=== PATIENT | female | born 1975 | race American Indian/Alaskan Native ===

== ENCOUNTER 2016-12-12 10:17 | Outpatient (CLI) | payer MEDICAID ==
--- NOTE | 2016-12-12 12:45 | Mammography Report ---
SPOT COMPRESSION MAGNIFICATION VIEW AND SONOGRAPHIC EXAMINATION OF CIRCUMSCRIBED 4 MM DENSITY LEFT UPPER LOBE: FINDINGS: There is persistence of density noted on Spot compression magnification view at upper left breast. On sonographic examination, there is well-defined circumscribed hypoechoic oval mass measuring 0.3 cm in transverse diameter noted corresponding to the density seen on the mammogram at approximate 2:00 position, 2 cm from nipple. IMPRESSION: Probably benign complex cyst or fibroadenoma. 6 month follow-up with mammogram and if necessary sonogram is recommended. BI-RADS CATEGORY: 0 = Needs additional imaging evaluation ACR BI-RADS MAMMOGRAPHIC CODES: 0 = Needs additional imaging evaluation; 1 = Negative; 2 = Benign; 3 = Probably benign; 4 = Suspicious; 5 = Malignant; 6 = Known biopsy-proven malignancy COMMENT: 1. Dense breast tissue, i.e., adenosis, fibrocystic changes, etc., may obscure an underlying neoplasm. 2. Approximately 10% of cancers are not detected with mammography. 3. A negative mammography report should not delay biopsy if a clinically suspicious mass is present.
== END 2016-12-12 10:18 | disposition home or self-care (01) ==
LOC: US 10:17
PROVIDERS: ATTEND Obstetrics & Gynecology
DX: N64.59 Other signs and symptoms in breast (principal)
CPT/HCPCS: 76642; G0206

== ENCOUNTER 2017-07-26 09:33 | Outpatient (CLI) | payer MEDICAID ==
--- NOTE | 2017-07-26 12:42 | Ultrasound Report ---
Bilateral diagnostic mammogram with CAD and targeted left breast ultrasound. History: 6 month followup study. Findings: Comparison is made to previous studies performed in November of 2016. The breast parenchyma is heterogeneously dense. In the upper quadrant of the left breast, there is a rounded nodular asymmetry partially secured by adjacent parenchyma which has been demonstrated on multiple previous studies. This has not changed appreciably in size or configuration. No architectural distortion or suspicious calcifications. Sonographic evaluation of the upper-outer quadrant of the left breast demonstrates a 4 mm circumscribed complex lesion which has an area of increased central echogenicity consistent with fat. This appearance and size are unchanged compared to the previous study in November. No additional focal findings are seen. Impression: Stable left breast nodular asymmetry which on ultrasound consistent with a small intramammary lymph node. No suspicious imaging features. BI-RADS code: 2. Recommendation: Annual screening.
== END 2017-07-26 09:34 | disposition home or self-care (01) ==
LOC: MAMMO 09:33
PROVIDERS: ATTEND Advanced Practice Midwife
DX: N64.59 Other signs and symptoms in breast (principal); N64.89 Other specified disorders of breast
CPT/HCPCS: 76642; G0204; 77066

== ENCOUNTER 2018-04-03 13:52 | Emergency (ER) | payer MEDICAID ==
[2018-04-03 14:27] VITALS: BP 140/70
[2018-04-03] MEDS ORDERED: DELTASONE PO ONE (16:00)
[2018-04-03] MEDS ORDERED: BENADRYL PO ONE (16:00)
--- NOTE | 2018-04-03 16:06 | Emergency Department Report ---
ED Rash HPI - HPI Chief Complaint: Skin/Abscess/Foreign Body Stated Complaint: BUG BITE ON BACK Time Seen by Provider: 04/03/18 15:44 Duration: 1 Day Location: Back Suspected Cause: Insect Rash Symptoms: Yes Itching, No Facial Swelling, No Tongue/Oral Swelling, No Breathing Difficulties, No Choking Sensation, No Wheezing/Dyspnea, No Peeling, No Blistering, No Fever, No Lightheaded, No Malaise, No Myalgias Severity: mild Other History: 42-year-old female presents with raised lesion on her right side of her back. Patient states she noticed it last night. Patient states today to pick. Patient states she thinks she got bit by a bug but did not see what bit her. She denies fevers/chills/nausea or vomiting. ED Review of Systems ROS: Stated complaint: BUG BITE ON BACK Other details as noted in HPI Constitutional: denies: chills, fever Eyes: denies: eye pain, eye discharge, vision change ENT: denies: ear pain, throat pain Respiratory: denies: cough, shortness of breath, wheezing Cardiovascular: denies: chest pain, palpitations Endocrine: no symptoms reported Gastrointestinal: denies: abdominal pain, nausea, diarrhea Genitourinary: denies: urgency, dysuria, discharge Musculoskeletal: denies: back pain, joint swelling, arthralgia Skin: denies: rash, lesions Neurological: denies: headache, weakness, paresthesias Psychiatric: denies: anxiety, depression Hematological/Lymphatic: denies: easy bleeding, easy bruising ED Past Medical Hx - Past Medical History Previous Medical History?: Yes Hx Hypertension: Yes Hx Psychiatric Treatment: Yes (ANXIETY. DO NOT TAKE HER PAXIL) Additional medical history: PNEUMONIA, UTERINE FIBROIDS - Surgical History Past Surgical History?: No - Social History Smoking Status: Smoker, Current Status Unknown Substance Use Type: Alcohol, Marijuana - Medications Home Medications: Home Medications Medication Instructions Recorded Confirmed Last Taken Type Cephalexin [Keflex] 500 mg PO Q12HR #10 cap 04/03/18 Unknown Rx Hydrocortisone 1 applic TP TID #1 tube 04/03/18 Unknown Rx diphenhydrAMINE [Benadryl CAP] 25 mg PO QHS #20 capsule 04/03/18 Unknown Rx Rash Exam - Exam General: Vital signs noted. No distress. Alert and acting appropriately. HEENT: No Periorbital Edema, No Conjuctival Injection, No Chemosis, No Perioral Edema, No Tongue Edema, No Uvular Edema, No Compromised Airway, No Drooling Lungs: Yes Good Air Exchange (Normal Breath Sounds), No Wheezes, No Ronchi, No Stridor, No Cough, No Labored Respirations, No Retractions, No Use of Accessory Muscles, No Other Abnormal Lung Sounds Heart: Yes Regular, No Murmur Front/Back of Body, Lg (Color): 1 - one raised lesion consistent with insect bite, nonerythematous, nontender to palpation. No draining Skin: Yes Other (raised lesion about 1cm with insect bite marking consistent with insect bite), No Urticarial Rash, No Maculopapular Rash, No Morbilliform rash, No Bulla(e), No Excoriations, No Weeping, No Tenderness, No Erythema, No Edema, No Encrustations Other: Positive: Abdomen Normal, Neurologic Normal, Musculoskeletal Normal ED Course Vital Signs 04/03/18 14:22 Temperature 98.2 F Pulse Rate 54 L Respiratory 18 Rate Blood Pressure 140/70 O2 Sat by Pulse 100 Oximetry ED Medical Decision Making - Medical Decision Making 42-year-old female presents with insect bites to right side of her lower back. ED course: I discussed the patient to apply antibiotic and cortisone cream to the lesion I discussed warm compresses to help with swelling. Patient is in no acute distress or respiratory distress. Vital signs are normal Critical care attestation.: If time is entered above; I have spent that time in minutes in the direct care of this critically ill patient, excluding procedure time. ED Disposition Clinical Impression: Insect bite Qualifiers: Encounter type: initial encounter Qualified Code(s): W57.XXXA - Bitten or stung by nonvenomous insect and other nonvenomous arthropods, initial encounter Disposition: DC-01 TO HOME OR SELFCARE Is pt being admited?: No Does the pt Need Aspirin: No Condition: Stable Instructions: Insect Bite or Sting (ED) Additional Instructions: Make sure to follow up with the primary care physician as discussed. Apply warm compress 3 times daily. Use cream as prescribed. Take all your medications as you've been prescribed. If you have any worsening symptoms or develop new symptoms please return to ED immediately. Prescriptions: diphenhydrAMINE [Benadryl CAP] 25 mg PO QHS #20 capsule Cephalexin [Keflex] 500 mg PO Q12HR #10 cap Hydrocortisone 1 applic TP TID #1 tube Referrals: PENNY DIAMOND MD [Primary Care Provider] - 3-5 Days Forms: Accompanied Note, Work/School Release Form(ED) Time of Disposition: 16:11
== END 2018-04-03 16:37 | disposition home or self-care (01) ==
LOC: ED 13:52
DX: S20.469A Insect bite (nonvenomous) of unspecified back wall of thorax, initial encounter (principal); W57.XXXA Bitten or stung by nonvenomous insect and other nonvenomous arthropods, initial encounter; Y93.89 Activity, other specified; Y92.89 Other specified places as the place of occurrence of the external cause; Y99.8 Other external cause status
CPT/HCPCS: 99282; J7512

== ENCOUNTER 2020-05-18 08:42 | Outpatient (CLI) | payer MEDICAID ==
--- NOTE | 2020-05-18 15:23 | Mammography Report ---
DIGITAL SCREENING MAMMOGRAM WITH CAD, 05/18/2020 INDICATION: Routine screening mammography. TECHNIQUE: Digital bilateral 2D mammography was obtained in the craniocaudal and mediolateral obliq ue projections. This examination was interpreted with the benefit of Computer-Aided Detection analysi s. COMPARISON: 05/03/2016. FINDINGS: Breast Density: The breasts are extremely dense, which lowers the sensitivity of mammography. There is no evidence of dominant mass, suspicious calcifications or architectural distortion in eithe r breast. IMPRESSION: Follow up recommendation: Routine yearly BI-RADS Category 1: Negative. A "normal" or negative report should not discourage follow up or biopsy of a clinically significant f inding. A written summary of these findings will be mailed to the patient. The patient will be entered into a mammography reporting system which will generate a reminder letter for the patient's next appointmen t at the appropriate interval. The [employer] recommends yearly mammograms starting at age 40 and continuing as l cynthia as a woman is in good health. Breast MRI is recommended for women with an approximate 20-25% or greater lifetime risk of breast cancer, including women with a strong family history of breast or ova heidy cancer or who have been treated for Hodgkin's disease. Signer Name: Guille Malave MD Signed: 05/18/2020 3:18 PM Workstation Name: [id number]
== END 2020-05-18 08:43 | disposition home or self-care (01) ==
LOC: MAMMO 08:42
PROVIDERS: ATTEND Advanced Practice Midwife
DX: Z12.31 Encounter for screening mammogram for malignant neoplasm of breast (principal)
CPT/HCPCS: 77067